=== PATIENT | female | born 1990 | race Caucasian/White ===

== ENCOUNTER 2017-07-10 09:58 | Emergency (ER) | payer OTHER ==
[~2017-07-10] VITALS: Ht 157.5 cm; Wt 63.7 kg
[2017-07-10 10:43] LABS: ADD MIUA? NO; BILIRUBIN NEGATIVE; BLOOD NEGATIVE; COLOR STRAW ((YELLOW)); GLUCOSE (STRIP) NEGATIVE; KETONES NEGATIVE; LEUKOCYTES NEGATIVE; NITRITE NEGATIVE; PROTEIN (STRIP) NEGATIVE; SPECIFIC GRAVITY 1.003 (1.000-1.030); UROBILINOGEN 0.2 MG/DL (0.2-1.0)
[2017-07-10 10:47] LABS: BASOPHIL COUNT 0.1 K/uL (0-0.1); EOSINOPHIL (%) 0.3 % (0-5); HEMATOCRIT 45.8 % (36.0-46.0); IMMATURE GRANULOCYTE (%) 0.3 % (0.0-0.7); INSTRUMENT ABS NEUTROPHIL CT 8.5 K/uL; LYMPHOCYTE COUNT 2.3 K/uL (1.0-2.8); MCH 31.1 PG (29.0-34.0); MCHC 34.9 G/DL (30.0-36.0); MCV 89.1 FL (83-99); MEAN PLAT.VOLUME 10.2 uM^3 (9.5-12.4); MONOCYTE (%) 7.9 % (3-12); MONOCYTE COUNT 0.9 K/uL (0-0.8); NEUTROPHIL (%) 71.4 % (45-76); NEUTROPHIL COUNT 8.5 K/uL (1.8-6.4); PLATELET COUNT 272 K/uL (156-360); RBC DIS.WIDTH-CV 11.3 % (11.8-14.6); RBC DIS.WIDTH-SD 36.9 % (39-53); RED BLOOD COUNT 5.14 M/uL (3.80-5.20); WHITE BLOOD COUNT 11.8 K/uL (4.1-10.2)
[2017-07-10 10:58] LABS: CHLORIDE 104 mEq/L (99-109); POTASSIUM 3.6 mEq/L (3.7-5.4); SODIUM 138 mEq/L (136-147)
[2017-07-10 11:00] LABS: GLUCOSE 101 mg/dL (70-99)
[2017-07-10 11:01] LABS: ANION GAP 8 MEQ/L (2-14)
[2017-07-10 11:04] LABS: ALKALINE PHOSPHATASE 85 IU/L (3-129); GFR ESTIMATE (CALCULATED) > 59 mL/min/
[2017-07-10 11:05] LABS: UREA NITROGEN (BUN) 11 mg/dL (9-23)
[2017-07-10 11:07] LABS: LIPASE 25 U/L (1.0-51.0)
[2017-07-10 11:13] LABS: QUANTITATIVE HCG < 4.0 MIU/ML
[2017-07-10] MEDS ORDERED: ONCE DAILY1 EACH PO (12:39)
[2017-07-10 16:19] VITALS: BP 106/61
[2017-07-10] MEDS ORDERED: PERCOCET 5/31 TABLET PO (18:23)
[2017-07-10] MEDS ORDERED: COLACE100 MG PO (18:23)
[2017-07-10 19:20] VITALS: BP 98/60
[2017-07-10 21:23] VITALS: BP 100/67
== END 2017-07-10 21:26 | disposition home or self-care (01) ==
LOC: EME 09:58 → 2SOUTH 15:03 → ENRESERV 15:04 → 2EAST 16:00
PROVIDERS: Emergency Medicine
PROC: 0DTJ4ZZ Resection of Appendix, Percutaneous Endoscopic Approach (ICD-10-PCS; principal; 2017-07-10)
DX: K35.80 Unspecified acute appendicitis (principal)
CPT/HCPCS: 74177; 80053; 81003; 83690; 84702; 85025; 88304; 99281; 99285; G0378; J0330; J1170; J1200; J1885; J2250; J2405; J2765; J3010; J7030; J7120; S0074